=== PATIENT | female | born 1965 | race Caucasian/White ===

== ENCOUNTER → 2023-10-05 13:57 | Outpatient (REF) | payer OTHER, SELFPAY | LOC: WDC 13:57 | PROVIDERS: ATTENDING PHYSICIAN Obstetrics & Gynecology; FAMILY PHYSICIAN Physician Assistant Medical | DX: N64.4 Mastodynia (principal) | CPT/HCPCS: 76642; 77062; 77066 ==

== ENCOUNTER 2024-04-20 16:24 | Emergency (ER) | payer OTHER, SELFPAY ==
[2024-04-20 16:39] VITALS: BP 107/66
[2024-04-20 18:20] VITALS: BP 122/80
[2024-04-20 19:00] VITALS: BP 115/71
[2024-04-20] MEDS: TORADOL 15 MG IV (19:00)
[2024-04-20 19:02] LABS: Urine Albumin Negative (Neg - Trace); Urine Bilirubin Negative (Negative); Urine Character Clear (Clear); Urine Color Yellow; Urine Glucose Negative (Negative); Urine Ketone Trace (Negative); Urine Leukocyte Trace (Negative); Urine Nitrite Negative (Negative); Urine Occult Blood Trace (Negative); Urine Urobilinogen Negative (Neg - 1+)
[2024-04-20 19:03] LABS: % Basophils 0.4 % (0-2); % Eosinophils 1.6 % (0-6); % Immature Granulocytes 0.4 % (0-0.5); % Lymphocytes 18.4 % (20.5-51.1); % Monocytes 10.6 % (1.7-9.3); % Neutrophils 68.6 % (42.2-75.2); Absolute Eosinophils 0.1 10^3/uL (0-0.7); Absolute Monocytes 0.6 10^3/uL (0.1-0.6); Absolute Neutrophils 3.8 10^3/uL (1.4-6.5); Hematocrit 37.7 % (37.0-47.0); Hemoglobin 13.5 g/dL (12.0-16.0); Mean Corp Hgb Conc. 35.8 g/dL (33.0-37.0); Mean Corpuscular Hgb 31.5 pg (27.0-31.0); Mean Corpuscular Volume 87.9 fL (81.0-99.0); Mean Platelet Volume 9.9 fL (7.4-10.4); Nucleated Red Blood Cells % 0 %; Platelet Count 192 10^3/uL (130-400); Red Blood Cell Count 4.29 10^6/uL (4.20-5.40); Red Cell Dist. Width 12.4 % (11.5-14.5); White Blood Cell Count 5.5 10^3/uL (4.8-10.8)
[2024-04-20 19:15] LABS: HCG, Serum Qualitative Screen Negative
[2024-04-20 19:18] LABS: ALT (SGPT) 19 U/L (0-35); AST (SGOT) 21 U/L (14-36); Albumin 4.5 g/dl (3.5-5.0); Alkaline Phosphatase 36 U/L (38-126); Blood Urea Nitrogen 23 mg/dl (7-17); Calcium 9.8 mg/dl (8.4-10.2); Carbon Dioxide 28 mmol/L (22-30); Chloride 101 mmol/L (98-107); Glucose 96 mg/dl (70-99); Lipase 85 U/L (23-300); Sodium 138 mmol/L (135-145); Total Bilirubin 0.4 mg/dl (0.2-1.3); Total Protein 6.6 g/dl (6.3-8.2); eGFR > 60.00
[2024-04-20 19:36] LABS: Urine Squamous Cell 16-20 /LPF (Few)
[2024-04-20 19:37] LABS: Urine Amorphous Seen; Urine Bacteria Moderate (Negative); Urine Red Blood Cell None Seen /HPF (0-2)
[2024-04-20 20:00] VITALS: BP 125/74
--- NOTE | 2024-04-20 22:41 | ED.GENMED ---
History of Present Illness
General
Chief Complaint: Abdominal Pain
Source: patient
Exam Limitations: none
Time Seen by Provider: 04/20/24 18:08
Nursing documentation reviewed up to this point in time: agreed with
History of Present Illness
History of Present Illness:
58-year-old female past medical history of hypothyroidism presenting to the emergency department today with concerns of abdominal pain on and off since yesterday felt a pop into the right lower quad with ongoing pain to the area. Took Pepcid
earlier without relief. Denies any fevers denies changes in bowel movements nausea or vomiting. No history of abdominal surgeries
Past History
Past History
ED Past Medical History: Hyperthyroidism, Hypothyroidism and Other (osteoporosis)
ED Past Surgical History: Other (thyroidectomy 12/21/18 at [facility])
Social History
Tobacco: Non-smoker
Personal:
Living: with family
Review of Systems
Review of Systems
Allergies reviewed?: Yes
All Other Systems: ROS reviewed and negative except as documented in HPI and ROS
Phy Exam
Physical Exam
Physical Exam:
GENERAL: Alert , in no apparent distress
EYE: pupils equal and reactive
NECK: Supple, no significant adenopathy.
ENT: o/p clr, mmm.
CARDIAC: Regular rate and rhythm .
LUNGS: Clear breath sounds bilaterally, no acute respiratory distress, no wheezes/rales/rhonchi
ABDOMEN: Right lower quadrant abdominal pain otherwise soft benign abdomen
NEUROLOGICAL: Alert and oriented, no focal neuro deficits
SKIN: Warm and dry, skin intact.
MUSCULOSKELETAL: No edema, well perfused.
PSYCH: Normal and appropriate interaction.
Course
Orders/Labs/Results
Orders:
Orders
04/20/24 18:47
CT Abd/Pel (IV only)-DH only Urgent
Comment:
Reason For Exam: rlq pain
Test Result ONCE
04/20/24 18:56
Complete Blood Count/With Diff Urgent
Comprehensive Metabolic Panel Urgent
HCG, Serum Qualitative Screen Urgent
Lipase Urgent
Urinalysis Reflex To Culture Urgent
Date Specimen was Collected: 04/20/24
Time Specimen was Collected: 18:51
Urine Microscopic Reflex Cult Urgent
Urine Culture Urgent
TABATHA Source: U
Specimen Description:
Date Specimen was Collected: 04/20/24
Time Specimen was Collected: 18:51
04/20/24 18:58
Ketorolac [Toradol] 15 mg IV NOW STA
Abnormal Lab Results
04/20/24
18:56
MCH 31.5 H pg
(27.0-31.0)
Absolute Lymphs (auto) 1.0 L 10^3/uL
(1.2-3.4)
Lymphocytes % 18.4 L %
(20.5-51.1)
Monocytes % 10.6 H %
(1.7-9.3)
BUN 23 H mg/dl
(7-17)
Alkaline Phosphatase 36 L U/L
(38-126)
Urine Ketones Trace A
(Negative)
Ur Occult Blood Reflex Trace A
(Negative)
Leukocyte Esterase Rfl Trace A
(Negative)
Urine Bacteria (Reflex) Moderate A
(Negative)
04/20/24 18:56
04/20/24 18:56
Vital Signs
Initial and Last Documented VS:
Initial Vital Signs
Temp Pulse Resp BP Pulse Ox
98.3 F 67 18 107/66 97
04/20/24 16:39 04/20/24 16:39 04/20/24 16:39 04/20/24 16:39 04/20/24 16:39
Last Documented Vital Signs
Temp Pulse Resp BP Pulse Ox
98.3 F 61 17 125/74 96
04/20/24 16:39 04/20/24 20:15 04/20/24 20:15 04/20/24 20:00 04/20/24 20:15
MDM/Problems Addressed
MDM/Problems Addressed:
58-year-old female presenting to the emergency department today with concerns of right lower quadrant abdominal pain initially started as periumbilical moving more to the right but also some mild pain to the left lower quadrant. [place] a popping
sensation yesterday and ongoing achiness and burning since. No significant urinary symptoms. Normal vital signs throughout ER stay. CT scan without specific emergent findings appendix not specifically visualized but no evidence of inflammatory
changes patient did have a large amount of stool. Patient was reassessed and had no significant right lower quadrant pain making progressive appendicitis unlikely. At this point patient does appear stable for discharge advised for MiraLAX use for
constipation and given strict return precautions for any progression of symptoms.
*Critical Care Note
Total Time (30-74mins, 75-104mins- exclusive of procedures): Not Applicable
ED Attending Note
-
Portions of this chart may have been created with voice recognition software.� Occasional wrong word or��sound alike� substitutions may have occurred due to the inherent limitations of voice recognition software.
Discharge Plan
Departure
Patient Disposition: Home (Routine Discharge)
Date of Disposition: 04/20/24
Time of Disposition: 23:34
Patient with high blood pressure during this ER visit?: No
Condition: Good
Covid-19: Not Applicable
Discharge Problem:
Abdominal pain, Constipation
Instructions: Constipation, Adult (DC), Abdominal Pain
Prescriptions:
New
polyethylene glycol 3350 [Miralax] 17 gram/dose powder
4 g PO DAILY Qty: 119 0RF
No Action
levothyroxine 50 MCG tablet
50 mcg PO DAILY
cholecalciferol (vitamin D3) 2,000 UNITS tablet
2,000 units PO DAILY
romosozumab-aqqg [Evenity] 105 MG/1.17 ML syringe
105 mg SQ MONTHLY
calcium carbonate [Antacid (calcium carbonate)] 1 TABLET tablet,chewable
0.5 tab PO DAILY
Patient Comments:
08/08/2019: Pt normally takes 1/2 tab for calcium, hasn't taken in a week due to a medical test coming up
multivitamin with folic acid [Tab-A-Michelet] 1 TABLET tablet
1 tab PO DAILY
omeprazole 20 MG capsule,delayed release(DR/EC)
20 mg PO DAILY Qty: 30 0RF
Referrals:
Pascale Garcia PA-C [Family Provider] -
Activity Restrictions/Additional Instructions:
You came to the emergency department today with concerns of abdominal discomfort. You are found have constipation but no evidence of emergent findings. Please take MiraLAX daily. Return to the emergency department immediately for any progression
or worsening symptoms.
Interventions
Interventions:
*Risk Screen - Suicide Last Done: 04/20/24 16:39
*General Assessment Last Done: 04/20/24 16:39
*Neglect/Abuse Screening Last Done: 04/20/24 16:39
*ED COVID-19 Vaccine History Last Done: 04/20/24 18:23
OU-Sdiznj-Rloxinavkb Assessment Last Done: 04/20/24 18:23
Discharge Date and Time
Print Language: TANZANIAN
[2024-04-20 23:30] VITALS: BP 128/74
== END 2024-04-20 23:30 | disposition home or self-care (01) ==
LOC: EMR 16:24
PROVIDERS: Physician Assistant; EMERGENCY PHYSICIAN Emergency Medicine; FAMILY PHYSICIAN Physician Assistant Medical
DX: K59.00 Constipation, unspecified (principal); R10.31 Right lower quadrant pain; E03.9 Hypothyroidism, unspecified; M81.0 Age-related osteoporosis without current pathological fracture; Z87.891 Personal history of nicotine dependence
CPT/HCPCS: 99285; 96374; 74177; 80053; 81003; 81015; 83690; 84703; 85025; 87086; Q9967

== ENCOUNTER → 2024-08-09 07:17 | Outpatient (REF) | payer OTHER, SELFPAY | LOC: HWRAD 07:17 | PROVIDERS: ATTENDING PHYSICIAN Student in an Organized Health Care Education/Training Program; FAMILY PHYSICIAN Physician Assistant Medical | DX: E05.80 Other thyrotoxicosis without thyrotoxic crisis or storm (principal); E67.3 Hypervitaminosis D; L65.9 Nonscarring hair loss, unspecified; M81.0 Age-related osteoporosis without current pathological fracture; R79.89 Other specified abnormal findings of blood chemistry; R82.994 Hypercalciuria; R12 Heartburn; Z79.890 Hormone replacement therapy; Z51.81 Encounter for therapeutic drug level monitoring | CPT/HCPCS: 77080 ==

== ENCOUNTER → 2025-01-08 06:50 | Outpatient (REF) | payer OTHER, SELFPAY | LOC: HWWDC 06:50 | PROVIDERS: ATTENDING PHYSICIAN Obstetrics & Gynecology; FAMILY PHYSICIAN Physician Assistant Medical | DX: Z12.31 Encounter for screening mammogram for malignant neoplasm of breast (principal); N95.0 Postmenopausal bleeding | CPT/HCPCS: 76830; 76856; 77063; 77067 ==

== ENCOUNTER → 2025-04-14 16:24 | Outpatient (REF) | payer OTHER, SELFPAY | LOC: RAD 16:24 | PROVIDERS: ATTENDING PHYSICIAN Internal Medicine Critical Care Medicine; FAMILY PHYSICIAN Physician Assistant Medical | DX: J41.8 Mixed simple and mucopurulent chronic bronchitis (principal) | CPT/HCPCS: 71046 ==